=== PATIENT | female | born 2000 | race Caucasian/White ===

== ENCOUNTER 2023-11-29 13:54 | Emergency (ER) | payer OTHER ==
[~2023-11-29] VITALS: Ht 170.2 cm; Wt 65.2 kg
[2023-11-29] MEDS ORDERED: LAMO100T80 PO (14:29)
[2023-11-29] MEDS ORDERED: PAXI10TA13 PO (14:29)
[2023-11-29] MEDS ORDERED: HYDR50CA2 PO (14:30)
[2023-11-29 19:15] LABS: HEMATOCRIT 42.9 % (36.0-47.0); HEMOGLOBIN 14.8 g/dl (12.0-15.5); MEAN CORPUSCULAR HEMOGLOBIN 32.7 pg (27.0-33.0); MEAN CORPUSCULAR HGB CONC 34.5 g/dl (32.0-36.5); MEAN CORPUSCULAR VOLUME 94.7 fl (80.0-96.0); PLATELET COUNT, AUTOMATED 161 10^3/uL (150-450); RED BLOOD COUNT 4.53 10^6/uL (4.00-5.40); WHITE BLOOD COUNT 8.2 10^3/uL (4.0-10.0)
[2023-11-29 19:39] LABS: LIPASE 33 U/L (12-53)
[2023-11-29 19:40] LABS: CK-MB VALUE MASS < 1.0 NG/ML (<3.6)
[2023-11-29 19:42] LABS: ALBUMIN 4.1 G/DL (3.2-5.2); ALKALINE PHOSPHATASE 67 U/L (46-116); ALT/SGPT 16 U/L (7.0-40); AST/SGOT 8 U/L (<34); BILIRUBIN,DIRECT 0.2 MG/DL (<0.4); BILIRUBIN,TOTAL 0.8 MG/DL (0.3-1.2); BLOOD UREA NITROGEN 15 MG/DL (9-23); CALCIUM LEVEL 9.3 MG/DL (8.5-10.1); CARBON DIOXIDE LEVEL 26 MMOL/L (20-31); CHLORIDE LEVEL 106 MMOL/L (98-107); CPK CREATINE PHOSPHOKINASE 54 U/L (34-145); CREATININE FOR GFR 0.66 MG/DL (0.55-1.30); GLOMERULAR FILTRATION RATE > 60.0 (>60); GLUCOSE, FASTING 78 MG/DL (60-100); MB/CK RELATIVE INDEX 1.85 (< OR =4); POTASSIUM SERUM 4.4 MMOL/L (3.5-5.1); SODIUM LEVEL 139 MMOL/L (136-145); TOTAL PROTEIN 6.7 G/DL (5.7-8.2)
[2023-11-29 19:44] LABS: THYROID STIMULATING HORMONE 1.905 uIU/ML (0.55-4.78)
[2023-11-29 20:06] VITALS: BP 118/76; TEMP 98; O2SAT 100
[2023-11-29 20:06] LABS: HCG, SERUM QUALITATIVE NEGATIVE (NEGATIVE)
[2023-11-29] MEDS ORDERED: LAMO100T3 PO (20:15)
[2023-11-29] MEDS ORDERED: PARO10TA3 PO (20:15)
[2023-11-29] MEDS: lamoTRIgine 100MG TAB PO STA (20:23)
[2023-11-29] MEDS: PARoxetine 10MG TABLET PO STA (20:23)
== END 2023-11-29 20:25 | disposition home or self-care (01) ==
LOC: M ED 13:54
DX: Z76.0 Encounter for issue of repeat prescription (principal); F41.9 Anxiety disorder, unspecified; F32.A Depression, unspecified; R56.9 Unspecified convulsions; Z87.891 Personal history of nicotine dependence; F10.10 Alcohol abuse, uncomplicated; Z90.89 Acquired absence of other organs; Z79.899 Other long term (current) drug therapy

== ENCOUNTER 2025-04-25 08:13 | Emergency (ER) | payer OTHER ==
[~2025-04-25] VITALS: Ht 170.2 cm; Wt 54.9 kg
[~2025-04-25 08:13] MED LIST: HYDR50CA2 PO; LAMO100T3 PO; LAMO100T80 PO; PARO10TA3 PO; PAXI10TA13 PO
[2025-04-25 09:53] VITALS: BP 120/81; TEMP 97.4; O2SAT 98
== END 2025-04-25 10:05 | disposition home or self-care (01) ==
LOC: M ED 08:13
DX: S83.92XA Sprain of unspecified site of left knee, initial encounter (principal); W19.XXXA Unspecified fall, initial encounter; D89.89 Other specified disorders involving the immune mechanism, not elsewhere classified; F41.9 Anxiety disorder, unspecified; F32.A Depression, unspecified; Z88.8 Allergy status to other drugs, medicaments and biological substances; Y92.9 Unspecified place or not applicable; Y93.89 Activity, other specified; Y99.9 Unspecified external cause status